=== PATIENT | female | born 1945 | race Caucasian/White ===

== ENCOUNTER 2020-06-25 12:31 | Outpatient (CLI) | payer MEDICARE, BC, SELFPAY ==
[2020-06-25 13:39] LABS: Anion Gap 7 mmol/L (8-16); Blood Urea Nitrogen 24 mg/dL (7-17); Calcium 9.2 mg/dL (8.4-10.2); Carbon Dioxide 31 mmol/L (22-30); Chloride 101 mmol/L (98-107); Estimated Glomerular Filt Rate 48; Glucose 144 mg/dL (65-105); Sodium 139 mmol/L (137-145)
== END 2020-06-25 12:32 | disposition home or self-care (01) ==
PROVIDERS: PCP Student in an Organized Health Care Education/Training Program; Visit Provider Internal Medicine Cardiovascular Disease
DX: R06.02 Shortness of breath (principal); I25.10 Atherosclerotic heart disease of native coronary artery without angina pectoris; I10 Essential (primary) hypertension
CPT/HCPCS: 36415; 80048; 99212; G0463

== ENCOUNTER 2020-06-29 10:14 | Outpatient (CLI) | payer MEDICARE, BC, SELFPAY ==
[2020-06-29 11:23] LABS: Basophils Absolute Auto 0.1 K/mm3 (0.0-0.1); Basophils Percent Auto 0.7 % (0.2-1.2); Eosinophils Absolute Auto 0.1 K/mm3 (0-0.3); Eosinophils Percent Auto 1.7 % (0-4.4); Hematocrit 40.2 % (37.0-47.0); Hemoglobin 13.5 g/dL (12.0-15.0); Immature Granulocyte Absolute 0.04 K/mm3 (0.00-0.031); Immature Granulocyte Percent A 0.5 % (0-0.5); Lymphocytes Absolute Auto 1.64 K/mm3 (0.9-3.2); Lymphocytes Percent Auto 20.4 % (18.3-44.2); Mean Corpuscular HGB Conc 33.6 g/dl (32-36); Mean Corpuscular Hemoglobin 31.6 pg (26-34); Mean Corpuscular Volume 94.1 fl (80-100); Monocytes Absolute Auto 0.6 K/mm3 (0.1-0.6); Monocytes Percent Auto 7.3 % (2.6-8.5); Neutrophils Absolute Auto 5.6 K/mm3 (1.3-6.7); Neutrophils Percent Auto 69.4 % (45.5-73.1); Platelet Count Result 184 k/mm3 (150-375); Red Blood Count 4.27 M/mm3 (4.2-5.4); Red Cell Distribution Width 13.6 % (11.5-14.5)
[2020-06-29 11:34] LABS: Cholesterol 156 mg/dL (0-200); HDL Direct 30 mg/dL; Triglycerides 211 mg/dL (<150)
[2020-06-29 11:36] LABS: Rheumatoid Factor < 8.6 IU/ML (<12)
[2020-06-29 11:44] LABS: LDL Cholesterol Direct 87 mg/dL
[2020-06-29 12:14] LABS: Vitamin D 25 Hydroxy 52.9 ng/mL
[2020-07-03 10:56] LABS: Anti Cyclic Citrullinated Pept <16 Units (<20)
== END 2020-06-29 10:15 | disposition home or self-care (01) ==
LOC: ANHVASCINF 10:28
PROVIDERS: PCP Student in an Organized Health Care Education/Training Program; Visit Provider Student in an Organized Health Care Education/Training Program
DX: G62.9 Polyneuropathy, unspecified (principal); Z68.43 Body mass index [BMI] 50.0-59.9, adult; I10 Essential (primary) hypertension; R53.83 Other fatigue
CPT/HCPCS: 36415; 80061; 82306; 82607; 82746; 84443; 85025; 86038; 86200; 86430; 99212; G0463

== ENCOUNTER → 2020-08-03 15:51 | Outpatient (CLI) | payer MEDICARE, BC, SELFPAY ==
--- NOTE | ~2020-08-03 | MM_ITS ---
EXAMINATION: MM screening [facility] w yanira HISTORY: Screening mammogram TECHNIQUE: Craniocaudal and mediolateral oblique 3-D tomosynthesis images were obtained and synthetic 2-D images were generated. CAD analysis was submitted and interpreted. COMPARISON: 09/13/2018, 09/10/2017, 09/08/2016 bilateral digital screening mammogram examinations BREAST PARENCHYMAL COMPOSITION: There are scattered areas of fibroglandular density. FINDINGS: There are numerous benign calcifications scattered throughout the breasts. There is no evid ence of suspicious mass, calcification, or architectural distortion to suggest malignancy in either b reast. There has been no suspicious interval change. IMPRESSION: 1. No mammographic evidence of malignancy. 2. Recommend routine screening mammography in one year. BI-RADS Category 2: Benign finding(s). Reviewed, dictated and finalized at location A.
== END ==
PROVIDERS: Visit Provider Obstetrics & Gynecology Gynecology
DX: Z12.31 Encounter for screening mammogram for malignant neoplasm of breast (principal)
CPT/HCPCS: 77063; 77067

== ENCOUNTER 2021-02-07 11:25 | Outpatient (CLI) | payer MEDICARE, BC, SELFPAY ==
[2021-02-07 12:10] LABS: Add Urine Microscopic? YES; Appearance Urine Clear (Clear); Bilirubin Urine Negative (Negative); Blood Urine Negative (Negative); Color Urine Yellow (Yellow); Glucose Urine UA Negative (Negative); Ketones Urine Negative (Negative); Leukocyte Esterase Ur 1+ LEU/UL (Negative); Mucus Urine Rare /lpf; Nitrate Urine Negative (Negative); Protein Urine Negative (Negative); RBC Urine 0-2 /hpf (0-2); Specific Grav Ur 1.012 (1.001-1.035); Squamous Epithelial Cell Urine Few /hpf (Few); Urobilinogen Urine Negative mg/dL (<2.0)
== END 2021-02-07 11:26 | disposition home or self-care (01) ==
PROVIDERS: PCP Student in an Organized Health Care Education/Training Program; Visit Provider Internal Medicine Gastroenterology
DX: R30.0 Dysuria (principal)
CPT/HCPCS: 81001; 87077; 87086; 87088; 87186

== ENCOUNTER 2021-03-29 10:42 | Outpatient (CLI) | payer MEDICARE, BC, SELFPAY ==
[2021-03-29 11:54] LABS: Alanine Aminotransferase 25 U/L (4-35); Albumin Level 4.2 g/dL (3.5-5.1); Alkaline Phosphatase 118 U/L (38-126); Anion Gap 11 mmol/L (8-16); Aspartate Amino Transferase 37 U/L (14-36); Bilirubin,Total 0.4 mg/dL (0.2-1.3); Blood Urea Nitrogen 36 mg/dL (7-17); Calcium 9.8 mg/dL (8.4-10.2); Carbon Dioxide 27 mmol/L (22-30); Chloride 103 mmol/L (98-107); Estimated Glomerular Filt Rate 40; Glucose 102 mg/dL (65-105); Potassium 4.5 mmol/L (3.4-5.0); Sodium 141 mmol/L (137-145)
== END 2021-03-29 10:43 | disposition home or self-care (01) ==
LOC: ANHLAB 10:47 → ANHVASCINF 10:57
PROVIDERS: PCP Student in an Organized Health Care Education/Training Program; Visit Provider Student in an Organized Health Care Education/Training Program
DX: R79.89 Other specified abnormal findings of blood chemistry (principal)
CPT/HCPCS: 36415; 80053; 99212; G0463

== ENCOUNTER 2021-04-16 09:34 | Outpatient (CLI) | payer MEDICARE, BC, SELFPAY ==
--- NOTE | ~2021-04-16 | US_ITS ---
EXAMINATION: US retroperitoneal comp DATE: 04/16/2021 10:06 INDICATION: Stage III kidney disease TECHNIQUE: Multiple grayscale and Doppler ultrasound images of the kidneys were obtained. COMPARISON: 03/31/2019 FINDINGS: The right kidney measures 11.0 x 3.8 x 5.0 cm. The left kidney measures 10.8 x 4.6 x 4.4 cm . The kidneys demonstrate normal parenchymal echogenicity. There is no hydronephrosis. The bladder is normal. IMPRESSION: 1. Normal kidneys without hydronephrosis. Reviewed, dictated and finalized at location A.
== END 2021-04-16 09:35 | disposition home or self-care (01) ==
PROVIDERS: PCP Student in an Organized Health Care Education/Training Program; Visit Provider Student in an Organized Health Care Education/Training Program
DX: N18.30 Chronic kidney disease, stage 3 unspecified (principal)
CPT/HCPCS: 76770

== ENCOUNTER 2021-05-30 08:08 | Outpatient (CLI) | payer MEDICARE, BC, SELFPAY ==
[2021-05-30 10:03] LABS: Alanine Aminotransferase 28 U/L (4-35); Alkaline Phosphatase 70 U/L (38-126); Anion Gap 6 mmol/L (8-16); Aspartate Amino Transferase 43 U/L (14-36); Bilirubin,Total 0.7 mg/dL (0.2-1.3); Blood Urea Nitrogen 43 mg/dL (7-17); Calcium 9.4 mg/dL (8.4-10.2); Carbon Dioxide 29 mmol/L (22-30); Chloride 104 mmol/L (98-107); Estimated Glomerular Filt Rate 21; Glucose 98 mg/dL (65-110); Potassium 4.3 mmol/L (3.4-5.0); Sodium 139 mmol/L (137-145)
[2021-05-30 11:05] LABS: Folic Acid 9.6 ng/mL (2.76->20)
== END 2021-05-30 08:09 | disposition home or self-care (01) ==
LOC: ANHLAB 08:11
PROVIDERS: PCP Student in an Organized Health Care Education/Training Program; Visit Provider Student in an Organized Health Care Education/Training Program
DX: G62.9 Polyneuropathy, unspecified (principal); E87.6 Hypokalemia; I10 Essential (primary) hypertension; R79.89 Other specified abnormal findings of blood chemistry
CPT/HCPCS: 36415; 80053; 82607; 82746; 99212; G0463

== ENCOUNTER 2021-06-25 08:21 | Outpatient (CLI) | payer MEDICARE, BC, SELFPAY ==
[2021-06-25 09:08] LABS: Anion Gap 11 mmol/L (8-16); Blood Urea Nitrogen 23 mg/dL (7-17); Calcium 9.5 mg/dL (8.4-10.2); Carbon Dioxide 25 mmol/L (22-30); Chloride 101 mmol/L (98-107); Estimated Glomerular Filt Rate 48; Glucose 127 mg/dL (65-110); Sodium 137 mmol/L (137-145)
== END 2021-06-25 08:22 | disposition home or self-care (01) ==
PROVIDERS: PCP Student in an Organized Health Care Education/Training Program; Visit Provider Student in an Organized Health Care Education/Training Program
DX: E87.5 Hyperkalemia (principal)
CPT/HCPCS: 36415; 80048; 99212; G0463

== ENCOUNTER → 2021-08-06 09:48 | Outpatient (CLI) | payer MEDICARE, BC, SELFPAY ==
--- NOTE | ~2021-08-06 | MM_ITS ---
EXAMINATION: MM screening [facility] BI w yanira HISTORY: Screening TECHNIQUE: Craniocaudal and mediolateral oblique 3-D tomosynthesis images were obtained and synthetic 2-D images were generated. CAD analysis was submitted and interpreted. COMPARISON: Comparison to multiple prior studies sequentially, with oldest reviewed study dated 12/10. BREAST PARENCHYMAL COMPOSITION: There are scattered areas of fibroglandular density. FINDINGS: Stable benign-appearing breast calcifications. Stable benign-appearing partially calcified left breast mass, mid outer aspect. There is no evidence of suspicious mass, calcification, or yadira ectural distortion to suggest malignancy in either breast. There has been no suspicious interval connors ge. IMPRESSION: 1. No mammographic evidence of malignancy. 2. Recommend routine screening mammography in one year. BI-RADS Category 2: Benign finding(s). Reviewed, dictated and finalized at location A.
== END ==
PROVIDERS: PCP Student in an Organized Health Care Education/Training Program; Visit Provider Obstetrics & Gynecology Gynecology
DX: Z12.31 Encounter for screening mammogram for malignant neoplasm of breast (principal)
CPT/HCPCS: 77063; 77067

== ENCOUNTER 2022-04-30 07:13 | Outpatient (CLI) | payer MEDICARE, SELFPAY ==
[2022-04-30 07:53] LABS: Basophils Absolute Auto 0.1 K/mm3 (0.0-0.1); Basophils Percent Auto 0.7 % (0.2-1.2); Eosinophils Absolute Auto 0.1 K/mm3 (0-0.3); Eosinophils Percent Auto 1.5 % (0-4.4); Hemoglobin 12.8 g/dL (12.0-15.0); Immature Granulocyte Absolute 0.03 K/mm3 (0.00-0.031); Immature Granulocyte Percent A 0.4 % (0-0.5); Lymphocytes Absolute Auto 1.39 K/mm3 (0.9-3.2); Lymphocytes Percent Auto 18.5 % (18.3-44.2); Mean Corpuscular HGB Conc 32.8 g/dl (32-36); Mean Corpuscular Hemoglobin 30.8 pg (26-34); Mean Corpuscular Volume 93.8 fl (80-100); Mean Platelet Volume 12.7 fl (7.4-10.4); Monocytes Absolute Auto 0.5 K/mm3 (0.1-0.6); Monocytes Percent Auto 7.1 % (2.6-8.5); Neutrophils Absolute Auto 5.4 K/mm3 (1.3-6.7); Neutrophils Percent Auto 71.8 % (45.5-73.1); Platelet Count Result 152 k/mm3 (150-375); Red Blood Count 4.16 M/mm3 (4.2-5.4); White Blood Count 7.5 K/mm3 (4.5-10.0)
[2022-04-30 08:07] LABS: Alanine Aminotransferase 17 U/L (6-35); Albumin Level 4.1 g/dL (3.5-5.1); Alkaline Phosphatase 110 U/L (38-126); Anion Gap 7 mmol/L (8-16); Aspartate Amino Transferase 22 U/L (14-36); Bilirubin,Total 0.5 mg/dL (0.2-1.3); Blood Urea Nitrogen 19 mg/dL (7-17); Calcium 8.7 mg/dL (8.4-10.2); Carbon Dioxide 24 mmol/L (22-30); Chloride 109 mmol/L (98-107); Cholesterol 149 mg/dL (0-200); Estimated Glomerular Filt Rate > 60; Glucose 103 mg/dL (65-110); HDL Direct 30 mg/dL; Potassium 4.1 mmol/L (3.4-5.0); Sodium 140 mmol/L (137-145); Triglycerides 167 mg/dL (<150)
[2022-04-30 08:17] LABS: LDL Cholesterol Direct 80 mg/dL
[2022-04-30 08:22] LABS: Vitamin D 25 Hydroxy 68.5 ng/mL
[2022-04-30 08:42] LABS: Appearance Urine Clear (Clear); Bilirubin Urine Negative (Negative); Blood Urine Negative (Negative); Color Urine Yellow (Yellow); Glucose Urine UA Negative (Negative); Ketones Urine Negative (Negative); Leukocyte Esterase Ur Negative LEU/UL (Negative); Nitrate Urine Negative (Negative); Protein Urine Negative (Negative); Urobilinogen Urine 0.2 mg/dL (<2.0); pH Urine 5.5 (5.0-9.0)
[2022-04-30 08:46] LABS: Add Urine Microscopic? NO
[2022-04-30 09:00] LABS: Hemoglobin A1C 5.3 % (<5.7)
== END 2022-04-30 07:14 | disposition home or self-care (01) ==
PROVIDERS: PCP Student in an Organized Health Care Education/Training Program; Visit Provider Student in an Organized Health Care Education/Training Program
DX: I12.9 Hypertensive chronic kidney disease with stage 1 through stage 4 chronic kidney disease, or unspecified chronic kidney disease (principal); N18.31 Chronic kidney disease, stage 3a; R32 Unspecified urinary incontinence; R73.09 Other abnormal glucose; E55.9 Vitamin D deficiency, unspecified
CPT/HCPCS: 36415; 80053; 80061; 81003; 82306; 83036; 84443; 85025; 99212; G0463

== ENCOUNTER → 2022-08-08 10:51 | Outpatient (CLI) | payer MEDICARE, SELFPAY ==
--- NOTE | ~2022-08-08 | DEXA_ITS ---
Bone Density Report Name: DAYSI HALLMAN Age: 76 Sex: Female Ethnicity: White Date of : 1945 Indication: postmenopausal; screening for osteoporosis; hysterectomy; Referring Provider: JACY MARSHALL Study: Bone densitometry was performed. Exam Date: August 08, 2022 Accession number: [id number] Bone Density: Region BMD T-score Z-score Classification AP Spine (L3, L4) 1.442 3.1 5.9 Normal Femoral Neck (Left) 0.770 -0.7 1.5 Normal Total Hip (Left) 1.101 1.3 3.3 Normal Femoral Neck (Right) 0.817 -0.3 2.0 Normal Total Hip (Right) 1.106 1.3 3.3 Normal Total Hip Mean 1.104 1.3 3.3 Normal World Health Organization criteria for BMD impression classify patients as: Normal (T-score at or above -1.0), Osteopenia (T-score between -1.0 and -2.5), or Osteoporosis (T-score at or below -2.5). 10-year Fracture Risk: FRAX not reported because: All T-scores for Spine Total, Hip Total, Femoral Neck at or above -1.0 Previous Exams: Region Exam Age BMD T-score BMD Change BMD Change Date g/cm2 vs Baseline vs Previous AP Spine(L3, L4) 08/08/2022 76 1.442 3.1 0.261 0.100* 09/13/2018 73 1.343 2.2 0.161 0.100* 09/06/2015 70 1.243 1.3 0.061 0.023* 08/19/2012 67 1.219 1.1 0.038 0.058* 07/25/2009 63 1.162 0.6 -0.020 -0.020 06/24/2005 59 1.182 0.7 Total Hip(Left) 08/08/2022 76 1.101 1.3 0.055 0.013 09/13/2018 73 1.088 1.2 0.042 0.007 09/06/2015 70 1.081 1.1 0.035* 0.028 08/19/2012 67 1.053 0.9 0.007 0.031* 07/25/2009 63 1.022 0.7 -0.025 -0.025 06/24/2005 59 1.046 0.9 Total Hip(Right) 08/08/2022 76 1.106 1.3 0.071 -0.039* 09/13/2018 73 1.145 1.7 0.109 0.049* 09/06/2015 70 1.096 1.3 0.060 0.023 08/19/2012 67 1.073 1.1 0.037 0.055* 07/25/2009 63 1.018 0.6 -0.018 -0.018 06/24/2005 59 1.036 0.8 *Denotes significance at 95% confidence level, LSC for AP Spine = 0.022 g/cm2, LSC for Total Hip = 0.027 g/cm2 Clinical Information Provided by Patient: Has the following medical conditions: Hysterectomy Patient maximum height was 65.0 Menopause Age: 48 No regular weight bearing exercise Does not regularly consume dairy products Drinks caffein
--- NOTE | ~2022-08-08 | MM_ITS ---
EXAMINATION: MM screening [facility] BI w yanira HISTORY: Screening TECHNIQUE: Craniocaudal and mediolateral oblique 3-D tomosynthesis images were obtained and synthetic 2-D images were generated. CAD analysis was submitted and interpreted. COMPARISON: Comparison to multiple prior studies sequentially, with oldest reviewed study dated 08/26. BREAST PARENCHYMAL COMPOSITION: There are scattered areas of fibroglandular density. FINDINGS: There are benign-appearing bilateral breast calcifications. Stable bilateral nodular asymme tries. There is no evidence of suspicious mass, calcification, or architectural distortion to suggest malignancy in either breast. There has been no suspicious interval change. IMPRESSION: 1. No mammographic evidence of malignancy. 2. Recommend routine screening mammography in one year. BI-RADS CATEGORY 2 - BENIGN FINDINGS Reviewed, dictated and finalized at location A.
== END ==
PROVIDERS: PCP Student in an Organized Health Care Education/Training Program; Visit Provider Obstetrics & Gynecology Gynecology
DX: Z12.31 Encounter for screening mammogram for malignant neoplasm of breast (principal); Z78.0 Asymptomatic menopausal state
CPT/HCPCS: 77063; 77067; 77080

== ENCOUNTER 2023-10-06 08:13 | Emergency (ER) | payer MEDICARE, OTHER, SELFPAY ==
--- NOTE | ~2023-10-06 | XR_ITS ---
Left foot Technique: AP, oblique, and lateral views were obtained. Clinical History: Pain Findings: No acute fracture or dislocation is seen. Osseous alignment is anatomic. Joint spaces are p reserved without erosive or degenerative change. There is prominent enthesopathic change at the Achil les tendon insertion. Impression: No fracture or dislocation. Enthesopathic change at the Achilles tendon insertion. Reviewed, dictated and finalized at location M. ATIONS SUPERVISOR Impression: No fracture or dislocation. Enthesopathic change at the Achilles tendon insertion.
--- NOTE | ~2023-10-06 | XR_ITS ---
Left ankle Technique: AP, oblique, and lateral views were obtained. Clinical History: Pain Findings: No acute fracture or dislocation is seen. Probable small old avulsion fracture from the med ial malleolus tip. Osseous alignment is anatomic. Ankle mortise and other visualized joint spaces are preserved. There is enthesopathic change at the Achilles tendon insertion. Impression: No acute fracture or dislocation. Enthesopathic change at the Achilles tendon insertion. Reviewed, dictated and finalized at location . HNUT MACHINE OPERATOR HELPER Impression: No acute fracture or dislocation. Enthesopathic change at the Achilles tendon insertion.
[2023-10-06 08:20] VITALS: BP 196/78; PULSE 70; RESP 16; TEMP 36.7; O2SAT 95
--- NOTE | 2023-10-06 09:27 | ED.LOWEXIN ---
HPI - Extremity Injury (Lower) General Chief Complaint: Extremity Injury, Lower Stated Complaint: pain in L foot cannot walk Time Seen by Provider: 10/06/23 09:07 Source: patient Mode of arrival: wheelchair Limitations: no limitations History of Present Illness HPI Narrative: This is an 78-year-old female that presents to the emergency department for left foot and ankle pain. Ongoing over the last 2 days. Reports today the pain made it difficult for her to ambulate which prompted her to be seen. Reports decreased range of motion due to pain. Denies fevers, erythema, edema, or calf pain. Related Data Home Medications Medication Instructions Recorded Confirmed carvedilol 25 mg tablet (Coreg) 25 mg PO Q12H 09/03/20 08/06/23 celecoxib 200 mg capsule 200 mg PO DAILY 09/03/20 08/06/23 ergocalciferol (vitamin D2) 1,250 1,250 mcg PO WEEKLY 09/03/20 08/06/23 mcg (50,000 unit) capsule glucosamine sulfate 500 mg tablet 500 mg PO DAILY 09/03/20 08/06/23 (Glucosamine) lisinopril 20 mg tablet 20 mg PO DAILY 09/03/20 08/06/23 mecobalamin (vitamin B12) 1,000 1,000 mcg sublingual DAILY 09/03/20 08/06/23 mcg disintegrating tablet,sublingual vibegron 75 mg tablet (Gemtesa) 75 mg PO DAILY 08/06/23 08/06/23 Allergies Allergy/AdvReac Type Severity Reaction Status Date / Time piroxicam Allergy Mild Unknown Verified 08/06/23 13:51 milk Allergy Unknown GAS Verified 08/06/23 13:51 Review of Systems Review of Systems: CONSTITUTIONAL: Denies fever SKIN: Denies rash MUSCULOSKELETAL: Reports joint pain, and myalgia. NEUROLOGIC: Denies numbness All systems reviewed & are unremarkable except as noted in HPI and below PMFSH Past Medical History Medical History Bladder dysfunction Dysuria History of kidney stones Irritable bowel syndrome with diarrhea SOB (shortness of breath) on exertion Surgical History Surgical History History of breast surgery History of hand surgery Family History Family History Mother Family history of malignant neoplasm Father Family history of heart disease in male family member before age 55 Sibling Diabetes mellitus Social History Social History Smoking status: Never smoker Alcohol intake: current Substance use: never Living arrangements: with family Occupation/Education: retired Gender identity (if verbalized by the patient): Female Exam Narrative: GENERAL: Well-appearing, well-nourished, and in no acute distress. HEAD: Normocephalic, atraumatic. EYES: EOMI. EXTREMITIES: Normal range of motion. No edema, erythema or warmth. Normal DP pulse. Normal sensation. Tender to palpation at the Achilles tendon insertion, Achilles tendon is intact SKIN: Warm, dry, no rash. NEURO: No focal deficits. Alert and oriented x3. PSYCH: Normal mood and affect Course Course Emergency Course: patient and family updated on workup and agree with plan of care Vital Signs Vital signs: Vital Signs Temperature 98.1 F 10/06/23 08:20 Pulse Rate 70 10/06/23 08:20 Respiratory Rate 16 10/06/23 08:20 Blood Pressure 196/78 H 10/06/23 08:20 Pulse Oximetry 95 10/06/23 08:20 Oxygen Delivery Room Air 10/06/23 08:20 Temperature 98.1 F 10/06/23 08:20 Pulse Rate 51 L 10/06/23 10:21 Respiratory Rate 16 10/06/23 10:21 Blood Pressure 187/67 H 10/06/23 10:21 Pulse Oximetry 99 10/06/23 10:21 Oxygen Delivery Room Air 10/06/23 08:20 MDM - Extremity Injury (Lower) MDM Narrative Medical decision making narrative: Patient presents to the emergency department for left foot and ankle pain. Ongoing over the last couple of days. No recent injuries or trauma. She is neurovascularly intact. No edema, erythema warmth. Left fo
[2023-10-06] MEDS: ACETAMINOPHEN 500 MG TABLET 1000 MG PO (10:20)
[2023-10-06 10:21] VITALS: BP 187/67; PULSE 51; RESP 16; O2SAT 99
[2023-10-06] MEDS: lisinopriL 20 MG TABLET PO (10:21)
[2023-10-06 11:05] VITALS: BP 187/64; PULSE 56; RESP 19; O2SAT 99
== END 2023-10-06 11:07 | disposition home or self-care (01) ==
PROVIDERS: Emergency Provider Physician Assistant; PCP Student in an Organized Health Care Education/Training Program
DX: M76.62 Achilles tendinitis, left leg (principal); Z87.442 Personal history of urinary calculi
CPT/HCPCS: 73610; 73630; 99283; A9270

== ENCOUNTER → 2023-11-21 10:41 | Outpatient (CLI) | payer MEDICARE, OTHER, SELFPAY ==
--- NOTE | ~2023-11-21 | MM_ITS ---
EXAMINATION: MM screening [facility] BI w yanira HISTORY: Screening TECHNIQUE: Craniocaudal and mediolateral oblique 3-D tomosynthesis images were obtained and synthetic 2-D images were generated. CAD analysis was submitted and interpreted. COMPARISON: Comparison to multiple prior studies sequentially, with oldest reviewed study dated 08/26. BREAST PARENCHYMAL COMPOSITION: There are scattered areas of fibroglandular density. FINDINGS: No significant change to benign-appearing bilateral breast asymmetries and calcifications. There is no evidence of suspicious mass, calcification, or architectural distortion to suggest malign becca in either breast. There has been no suspicious interval change. IMPRESSION: 1. No mammographic evidence of malignancy. 2. Recommend routine screening mammography in one year. BI-RADS Category 2: Benign finding(s). Reviewed, dictated and finalized at location A. T SINKER
== END ==
PROVIDERS: PCP Obstetrics & Gynecology Gynecology; Visit Provider Obstetrics & Gynecology Gynecology
DX: Z12.31 Encounter for screening mammogram for malignant neoplasm of breast (principal)
CPT/HCPCS: 77063; 77067

== ENCOUNTER 2024-09-09 13:17 | Outpatient (CLI) | payer MEDICARE, BC, SELFPAY ==
--- NOTE | 2024-09-09 13:37 | ECHO_ITS ---
Patient Info Name: Lluvia Fonseca Age: 79 years : 1945 Gender: Female Ht: 64 in Wt: 270 lbs BSA: 2.42 m2 HR: 64 bpm BP: 178 / 80 mmHg Technical Quality: Poor Exam Date: 09/09/2024 1:54 PM Exam Location: Echo Lab Patient Status: Outpatient Admit Date: 09/09/2024 Staff Ordering Physician: Turner Lala APRN [employer] Production Line: Rosy Rubio RDCS Attending Provider: Turner Lala APRN Referring Physician: Spike ARMENTA; Exam Type: CA echo dop color flow w con Study Info Indications R06.02 - Shortness of breath Complete two-dimensional, color flow and Doppler transthoracic echocardiogram is performed with contrast to opacify the left ventricle and to improve the deliniation of the left ventricle endocardial borders. Contrast/Agitated Saline Contrast/Ag. Saline: Definity Amount: 3.00 ml New IV Access: Inner Forearm and Left Site Condition: No extravasation, Site dressing applied and IV removed Reason for Poor Study: patient body habitus Summary 1. Definity contrast administered improved wall motion interpretation. 2. Left ventricular chamber dimension is normal. 3. Ventricular septum is sigmoid shaped measured at 2.4 cm, suggestive of hypertrophic cardiomyopathy. No resting LVOT obstruction. 4. Left ventricular systolic function is normal, estimated at 60-65%. 5. The left ventricular diastolic function is abnormal. 6. E/e' 16 is elevated. 7. Left atrial chamber dimension is moderately enlarged. 8. There is moderate aortic valve sclerosis. 9. There is mild aortic valve regurgitation. 10. The mitral valve has mildly calcified annulus. 11. There is mild mitral valve regurgitation. 12. No pulmonary hypertension, estimated pulmonary arterial systolic pressure is 15 mmHg. Left Ventricle E/e' 16 is elevated. Definity contrast administered improved wall motion interpretation. Ventricular septum is sigmoid shaped measured at 2.4 cm, suggestive of hypertrophic cardiomyopathy. No resting LVOT obstruction. Left ventricular chamber dimension is normal. Left ventricular systolic function is normal, estimated at 60-65%. The left ventricular diastolic function is abnormal. Right Ventricle Right ventricular systolic function is normal.. Right ventricular chamber dimension is normal. Left Atria Left atrial chamber dimension is moderately enlarged. Right Atria Right atrial chamber dimension is normal. Aortic Valve The aortic valve is trileaflet. There is moderate aortic valve sclerosis. There is no aortic valve stenosis. There is mild aortic valve regurgitation. Pulmonic Valve There is no pulmonic regurgitation. Mitral Valve The mitral valve has mildly calcified annulus. There is no mitral valve stenosis. There is mild mitral valve regurgitation. Tricuspid Valve There is no tricuspid valve regurgitation. No pulmonary hypertension, estimated pulmonary arterial systolic pressure is 15 mmHg. Pericardium/Pleural There is no pericardial effusion. Inferior Vena Cava Normal inferior vena cava with >50% collapse upon inspiration consistent with normal right atrial pressure, 5 mmHg. Aorta The aortic root size at the sinus of Valsalva is normal. Left Ventricular Outflow Tract Name Value Normal LVOT 2D LVOT Diameter 2.00 cm LVOT Doppler LVOT Peak Gradient 5 mmHg LVOT Mean Gradient 3 mmHg LVOT VTI 34.64 cm LVOT VTI/AV VTI Ratio 0.75 LVOT Stroke Volume 108.43 ml LVOT CO 5.45 l/min LVOT CI 2.25 L/min/m2 Pulmonic Valve Name Value Normal RVOT Doppler RVOT Peak Gradient 4 mmHg PV Doppler PV Peak Gradient 8 mmHg Mitral Valve Name Value Normal MV Doppler MV Decel [place] 457.17 cm/s2 MV PHT 0 s MV Area (PHT) 3.02 cm2 4.00-5.00 MV Diastolic Function MV E Peak Velocity 114.93 cm/s MV A Peak Velocity 98.99 cm/s MV E/A 1.16 MV Decel Time 0 s Tricuspid Valve Name Value Normal TV Regurgitation Doppler TR Peak Velocity 156.15 cm/s TR Peak Gradient 10 mmHg Estimated PAP/RSVP RA Pressure 5 mmHg <=5 PA Systolic Pressure 15 mmHg <36 RV Systolic Pressure 15 mmHg <36 Aorta Name Value Normal Ascending Aorta Ao Root Diameter (MM) 3.22 cm Ao Root Diam Index (MM) 1.33 cm/m2 Aortic Valve Name Value Normal AV Doppler AV Peak Velocity 212.30 cm/s AV Peak Gradient 15 mmHg AV Mean Gradient 9 mmHg AV VTI 46.12 cm AV Area (Cont Eq VTI) 2.35 cm2 >=3.00 AV Area (Cont Eq Peter) 1.76 cm2 AV Regurgitation 2D LVOT Area 3.13 cm2 AV Regurgitation Doppler AR Decel Time 2 s AR Decel [place] 161.25 cm/s2 AR PHT 1 s Ventricles Name Value Normal LV Dimensions 2D/MM IVS Diastole Thickness (MM) 1.13 cm 0.60-0.90 LVID Diastole (MM) 7.84 cm 3.80-5.20 LVIW Diastolic Thickness (MM) 1.23 cm 0.60-0.90 LVID Systole (MM) 5.68 cm 2.20-3.50 LVOT Diameter 2.00 cm LV Mass (MM Cubed) 483.12 g 67.00-162.00 LV Mass Index (MM Cubed) 0.02 g/cm2 0.00-0.01 Relative Wall Thickness (MM) 0.31 LV Fractional Shortening/Ejection Fraction 2D/MM LV Fractional Shortening (MM) 28 % 27-45 LV EF (MM Teicholz) 52 % 54-74 LV Diastolic Volume (4C MOD) 105.71 ml LV EF (4C MOD) 57 % LV Diastolic Volume (2C MOD) 129.76 ml LV EF (2C MOD) 69 % LV Diastolic Volume (BP MOD) 115.32 ml 46.00-106.00 LV Diastolic Volume Index (BP MOD) 0.05 l/m2 0.03-0.06 LV Systolic Volume (BP MOD) 42.27 ml 14.00-42.00 LV Systolic Volume Index (BP MOD) 0.02 l/m2 0.01-0.02 LV EF (BP MOD) 63 % 54-74 LV Diastolic Length (4C) 8.85 cm LV Systolic Length (4C) 7.16 cm LV Stroke Volume (4C MOD) 60.24 ml Atria Name Value Normal LA Dimensions LA Dimension (MM) 4.04 cm 2.70-3.80 LA Volume (4C A-L) 95.82 ml LA Volume (BP A-L) 94.82 ml RA Dimensions RA Area (4C) 17.49 cm2 <=18.00 Report Signatures
[2024-09-09] MEDS: PERFLUTREN LIPID MICROSPHERES 1.5 ML VIAL DILUTED TO 10 ML TOTAL VOLUME IV PUSH (14:45)
--- NOTE | 2024-09-09 16:05 | IVDEFINITY ---
Prior to administration of IV Definity the patient was educated on the risks and benefits of the imaging enhancing agent including potential adverse side effects. The patient verbalized understanding. Allergies were verified. No exclusion criteria were identified and at least one of the following inclusion criteria were met: 1) physician request, 2) patient technically difficult to image (per the [place] [employer]ocardi[employer] guidelines of two or more segments not discernable within the apical view), or 3) questionable left ventricular function. ?
== END 2024-09-09 13:18 | disposition home or self-care (01) ==
LOC: ANHCARD 13:17
PROVIDERS: PCP Obstetrics & Gynecology Gynecology; Visit Provider Nurse Practitioner Family
DX: R06.02 Shortness of breath (principal); I34.0 Nonrheumatic mitral (valve) insufficiency; I35.1 Nonrheumatic aortic (valve) insufficiency
CPT/HCPCS: C8929; Q9957